=== PATIENT | male | born 1965 | race Caucasian/White ===

== ENCOUNTER → 2024-09-17 | Outpatient (BNVA) | payer BC, SELFPAY | END | disposition home or self-care (01) | PROVIDERS: PCP Family Medicine; Referring Provider Family Medicine; Visit Provider Urology | DX: N40.1 Benign prostatic hyperplasia with lower urinary tract symptoms (principal); N13.8 Other obstructive and reflux uropathy; R31.29 Other microscopic hematuria; I10 Essential (primary) hypertension; E66.9 Obesity, unspecified; Z68.35 Body mass index [BMI] 35.0-35.9, adult; K21.9 Gastro-esophageal reflux disease without esophagitis | CPT/HCPCS: 81003; 99212; G0463 ==

== ENCOUNTER → 2024-11-26 | Outpatient (CLI) | payer BC, SELFPAY ==
--- NOTE | 2024-11-26 12:30 | XR_ITS ---
Examination: MRI lumbar spine without contrast Date and time of exam: November 26, 2024 1329 hours Comparison August 06, 2020 INDICATIONS: Low back pain 10 years, radiating to both legs Technique: Multiple MRI axial and sagittal sections lumbar spine. Sagittal T2-weighted images, TR 3500, TE 118 T1 weighted transverse sections, TR 688 T8.5, T2-weighted sagittal sections T1 weighted sagittal sections TR 621, TE 30 T2 axial sections, TR 4, 190, TE 84. Findings: Adequate alignment lumbar vertebral bodies Normal marrow signal lumbar vertebral bodies Diffuse lumbar disc desiccation No spondylolisthesis L5-S1 no disc protrusion L4-L5 5 mm central lumbar disc bulge L3-L4 no disc protrusion L2-L3 no disc protrusion L1-L2 no disc protrusion IMPRESSION: L4-L5 5 mm central lumbar disc
== END | disposition home or self-care (01) ==
LOC: SMRI 12:01
PROVIDERS: PCP Physical Medicine & Rehabilitation Pain Medicine; Referring Provider Physical Medicine & Rehabilitation Pain Medicine; Visit Provider Physical Medicine & Rehabilitation Pain Medicine
DX: M51.369 Other intervertebral disc degeneration, lumbar region without mention of lumbar back pain or lower extremity pain (principal)
CPT/HCPCS: 72148

== ENCOUNTER → 2024-11-26 | Outpatient (BNVA) | payer BC, SELFPAY | END | disposition home or self-care (01) | PROVIDERS: PCP Family Medicine; Referring Provider Family Medicine; Visit Provider Urology | DX: N40.1 Benign prostatic hyperplasia with lower urinary tract symptoms (principal); R39.12 Poor urinary stream; K21.9 Gastro-esophageal reflux disease without esophagitis | CPT/HCPCS: 51741; 51798 ==

== ENCOUNTER → 2025-04-08 | Outpatient (CLI) | payer BC, SELFPAY ==
--- NOTE | 2025-04-08 | XR_ITS ---
Examination: Knee, left , 3 views Technique: Knee AP, lateral, oblique 3 views Date and time of exam: April 08, 2025 1241 hours INDICATIONS: Left knee pain beginning one month ago. FINDINGS: Mild to moderate tricompartment osteoarthritis No fracture or dislocation No opaque foreign body IMPRESSION: Mild to moderate tricompartment osteoarthritis
--- NOTE | 2025-04-08 | XR_ITS ---
Examination: AP bilateral knees single view TECHNIQUE: AP standing bilateral knees single view Date and time: April 08, 2025, 1245 hours INDICATIONS: Left knee pain beginning one month ago. FINDINGS: Mild osteopenia. Moderate to advanced narrowing medial joint space right knee Mild to moderate narrowing medial joint space left knee and lateral joint space left knee No fractures IMPRESSION: Moderate to advanced narrowing medial joint space right knee Mild to moderate narrowing medial and lateral joint spaces left knee
== END | disposition home or self-care (01) ==
LOC: CDIM 12:05
PROVIDERS: PCP Nurse Practitioner Family; Referring Provider Nurse Practitioner Family; Visit Provider Nurse Practitioner Family
DX: M17.12 Unilateral primary osteoarthritis, left knee (principal); M25.862 Other specified joint disorders, left knee; M25.861 Other specified joint disorders, right knee
CPT/HCPCS: 73560; 73562; 73564; 73565